=== PATIENT | male | born 1960 | race Caucasian/White ===

== ENCOUNTER → 2020-03-12 10:03 | Outpatient (BNVA) | payer OTHER, SELFPAY | PROVIDERS: PCP Internal Medicine; Visit Provider Urology | DX: Z76.89 Persons encountering health services in other specified circumstances (principal) ==

== ENCOUNTER → 2020-09-11 15:40 | Outpatient (BNVA) | payer OTHER, SELFPAY | PROVIDERS: Visit Provider Urology ==

== ENCOUNTER → 2022-10-19 08:25 | Outpatient (BNVA) | payer OTHER, SELFPAY | PROVIDERS: PCP Internal Medicine; Visit Provider Urology | DX: N40.1 Benign prostatic hyperplasia with lower urinary tract symptoms (principal); N13.8 Other obstructive and reflux uropathy; R97.20 Elevated prostate specific antigen [PSA]; Z79.899 Other long term (current) drug therapy | CPT/HCPCS: 51798 ==

== ENCOUNTER 2023-12-05 10:22 | Outpatient (AMB) | payer OTHER, SELFPAY ==
--- NOTE | 2023-12-05 10:31 | MHC.OFFVIS ---
Intake Visit Reasons: 1Y PVR(needs PSA) Intake Note: Patient is present for Follow Up PSA/PVR Urology Med: Dutasteride Antibiotic Allergy: None Blood Thinner: None PVR: 167 today's PVR: 0ML'S Patient Services Rep Required: No Allergies No Known Allergies Allergy (Verified 12/05/23 10:39) HPI Comments Details: Natanael is a pleasant male. He is a patient of Dr Don. He is seen for the following urologic conditions - lower urinary tract symptoms - elevated PSA Continues with low this dutasteride Continue low-dose and once yearly PSA Lower urinary tract symptoms with elevated PSA He presents for - further evaluation of elevated PSA Current management is - finasteride Laboratory investigations include - a total PSA evaluation - 01/25 4.5, 08/26 2.1, 10/27 1.7, 10/28 2.2 Individualized Prostate Cancer Risk Calculator - < 5% high risk - Discussion regarding TRUS biopsy performed, - Discussed use of 5AR to help differentiate prostate cancer from benign disease. He would like to try this and understands the small risk associated with a delay in diagnosis, Symptoms include - minimal Overall symptoms are mild Therapeutic plan will be - continued surveillance PFSH Family History Maternal Uncle No problems noted. Review of Systems Const Denies chills and Denies fever(s) Card Reports no additional complaints and Denies syncope Resp Denies cough GI Denies abdominal pain and Denies heartburn Reports as per HPI and Denies change in libido Neuro Denies syncope Psych Denies change in libido Endo Denies change in libido Physical Exam Const General: cooperative, healthy appearing, comfortable and no acute distress Orientation/consciousness: patient oriented x3 HEENT Face and sinus: Yes normal facial exam Mouth: moist mucous membranes Neck Neck: Yes normal visual inspection, Yes full ROM and Yes trachea midline Chest Chest palpation & inspection: normal inspection of the chest Resp Effort & Inspection: normal respiratory effort, able to speak in complete sentences and no respiratory distress GI Inspection: Yes normal to inspection Back/Spine/Pelvis Cervical Spine: normal cervical lordosis Thoracic/Lumbar Spine: thoracic and lumbar spine normal to inspection Skin General skin exam: no rashes or lesions noted Neuro General: patient oriented x3, gait normal, tone normal and moves all extremities Extrem General: Yes normal to inspection and Yes capillary refill normal Office Procedures Post Void Residual Post Residual Void Post Void Residual (PVR): 0 [id number]-[id number] Void Residual by ultrasound Results AMB Urinalysis, Automated UA Leukoctes 0 Aaliyah/uL Last Edit by NANI Garcia on 12/05/23 11:06 UA Nitrite Negative Last Edit by NANI Garcia on 12/05/23 11:06 UA Urobilinogen 0.2 mg/dL Last Edit by NANI Garcia on 12/05/23 11:06 UA Protein 0 mg/dL Last Edit by Domitila Murphy CCM on 12/05/23 11:06 UA pH 6.0 Last Edit by Domitila Murphy CCM on 12/05/23 11:06 UA Blood 0 Hugo/uL Last Edit by Domitila Murphy CCM on 12/05/23 11:06 UA Specific [place] 1.015 Last Edit by NANI Garcia on 12/05/23 11:06 UA Ketone Negative Last Edit by NANI Garcia on 12/05/23 11:06 UA Bilirubin 0 mg/dL Last Edit by Domitila Murphy CCM on 12/05/23 11:06 UA Glucose 0 mg/dL Last Edit by Domitila Murphy [facility] on 12/05/23 11:06 Results Reviewed Results Reviewed: Laboratory Last Values Urine pH (Auto) 6.0 12/05/23 11:03 Specific [place] (Auto) 1.015 12/05/23 11:03 Urine Protein (Auto) 0 mg/dL 12/05/23 11:03 Glucose (UA)(Auto) 0 mg/dL 12/05/23 11:03 Urine Ketones (Auto) Negative 12/05/23 11:03 Urine Blood (Auto) 0 Hugo/uL 12/05/23 11:03 Urine Nitrite (Auto) Negative 12/05/23 11:03 Urine Bilirubin (Auto) 0 mg/dL 12/05/23 11:03 Urine Urobilinogen (Auto) 0.2 mg/dL 12/05/23 11:03 Leukocyte Esterase (Auto) 0 Aaliyah/uL 12/05/23 11:03 Assessment & Plan Assessment & Plan (1) Elevated PSA: Code(s): R97.20 - Elevated prostate specific antigen [PSA] Category: Medical (2) Weak urinary stream: Code(s): R39.12 - Poor urinary stream Category: Medical (3) Erectile dysfunction: Code(s): N52.9 - Male erectile dysfunction, unspecified Category: Medical Plan 1 year follow-up PSA Continue dutasteride Add tadalafil Orders: Orders AMB Urinalysis Automated 12/05/23 Z13.9 - Encounter for screening, unspecified Prostate Specific Antigen 364 Days R97.20 - Elevated prostate specific antigen [PSA] Medications: New tadalafil On demand medication take 60 minutes before intended activity 20 mg PO ONCE 30 tabs 0RF sexual activity 30 days N52.9 - Male erectile dysfunction, unspecified Patient Instructions: Imaging studies, laboratory and physical exam results were discussed and reviewed in detail. No major barriers to patient understanding were identified. An opportunity to ask questions regarding the treatment plan was provided. All questions were answered. The patient expressed understanding and agreement with the above treatment plan. The patient is aware they should contact our office by phone for worsening of their current condition or the appearance of new urologic symptoms. Compliance is encouraged with any medications and followup testing that is ordered. It is a privilege to participate in the urologic care of your patient. If you have any questions or concerns regarding treatment for the above conditions, or other urologic issues, please do not hesitate to contact me. The office telephone contact is [phone]. This note is constructed using voice recognition software. While every effort has been made to ensure accuracy computer operator errors may have been included. Yours sincerely, Dr Eran Fraser MD, [facility] - Urology Providers of Expert, Compassionate Care for the Genitourinary System Coding Level of Care Code Est Pt Level 4 (68044) Diagnoses Elevated PSA R97.20 Weak urinary stream R39.12 Erectile dysfunction N52.9 CPT Codes Post Residual Void - PVR CPT Code: 24772-[id number] Void Residual by ultrasound ([id number])
== END 2023-12-05 11:52 | disposition home or self-care (01) ==
PROVIDERS: PCP Internal Medicine; Visit Provider Urology
DX: R97.20 Elevated prostate specific antigen [PSA] (principal); R39.12 Poor urinary stream; N52.9 Male erectile dysfunction, unspecified
CPT/HCPCS: 99214

== ENCOUNTER → 2023-12-05 10:22 | Outpatient (BNVA) | payer OTHER, SELFPAY | PROVIDERS: PCP Internal Medicine; Visit Provider Urology | DX: R97.20 Elevated prostate specific antigen [PSA] (principal); R39.12 Poor urinary stream; N52.9 Male erectile dysfunction, unspecified; Z79.899 Other long term (current) drug therapy | CPT/HCPCS: 51798; 81003 ==

== ENCOUNTER 2025-01-03 12:29 | Outpatient (REF) | payer OTHER, SELFPAY ==
--- OUTSIDE RECORDS SUMMARY | 2025-01-03 12:59 | XMS_ITS | Clinical Summary ---
Author Organization [facility] Address [address] [place] [address] Care Team Providers Care Pediatrician Active Practice Name Role Phone Unavailable Primary Care Provider Unavailabl e Social History Tobacco Use Types Packs/Day Years Used Date Smoking Tobacco: Never Assessed Sex and Gender Information Value Date Recorded Sex Assigned at Not on file Gender Identity Not on file Sexual Orientation Not on file Plan of Treatment Health Maintenance Due Date Last Done Comments Hepatitis C Screening 1960 COVID-19 Vaccine (#1) 1961 Depression Screening 1973 Preventative Health Evaluation 1979 DTap / Tdap / Td (1 - Tdap) 01/02/1980 Colon Cancer Screening (Colonoscopy) 2006 Shingrix-Zoster Vaccine (1 of 2) 2011 Influenza Vaccine (#1) 2025 RSV Adult > 60+ Yrs or Pregn ant (1 - 1-dose 75+ series) 01/02/2036 Hepatitis B Vaccines Aged Out No long er eligible based on patient's age to complete this topic Pneumococcal Vaccine Aged Out No long er eligible based on patient's age to complete this topic RSV Ped < 20 months Aged Out No longe r eligible based on patient's age to complete this topic
--- OUTSIDE RECORDS SUMMARY | 2025-01-03 12:59 | XMS_ITS ---
Author Name [facility] Organization Unknown Care Team Organization Name Specialty Phone Email Start Date End Mamadou Doherty [facility] 03/02/2023 12/26/2024
--- OUTSIDE RECORDS SUMMARY | 2025-01-03 12:59 | XMS_ITS | Clinical Summary ---
Author Organization [facility] Address [address] [place] [address] Care Team Providers Care Wildlife Conservationist Name Role Phone Unavailable Primary Care Provider Unavailabl e Social History Tobacco Use Types Packs/Day Years Used Date Smoking Tobacco: Never Assessed Sex and Gender Information Value Date Recorded Sex Assigned at Not on file Legal Sex Male 3:19 PM EDT Gender Identity Not on file Sexual Orientation Not on file Plan of Treatment Health Maintenance Due Date Last Done Comments Hepatitis C Virus Screening 1961 HIV Screening 1974 DTaP/Tdap/Td Vaccines (1 - Tdap) 01/02/1980 Pneumococcal Vaccines 50+ (1 of 1 - PCV) 2011 Zoster (Shingles) Vaccine (1 of 2) 2011 COVID-19 Vaccine ( - 2023-2 5 season) 2024 RSV Vaccine 60 years and old er and Patients (1 - 1-dose 75+ series) 01/02/2036 Hepatitis B Vaccines Aged Out No long er eligible based on patient's age to complete this topic
[2025-01-03 13:42] LABS: Prostate Specific Antigen 5.13 ng/mL (<0.05-4.0)
== END 2025-01-03 12:30 | disposition home or self-care (01) ==
LOC: HO.10HDL 12:29
PROVIDERS: Visit Provider Urology
DX: R97.20 Elevated prostate specific antigen [PSA] (principal); Z12.5 Encounter for screening for malignant neoplasm of prostate
CPT/HCPCS: 36415; 84153

== ENCOUNTER 2025-02-04 13:56 | Outpatient (AMB) | payer OTHER, SELFPAY ==
--- NOTE | 2025-02-04 13:56 | A.OFFVIS_ITS ---
Intake Visit Reasons: 1y/PSA Intake Note: Patient is present for 1 yr Follow Up Urology Med: Dutasteride, tadalafil Antibiotic Allergy: None Blood Thinner: None labs done : 01/03/25 PSA 5.13 Entrepreneur Required: No Accompanied by: Self / Same As Patient Allergies No Known Allergies Allergy (Verified 02/04/25 13:57) HPI Comments Details: Natanael is a pleasant male. He is a patient of Dr Don. He is seen for the following urologic conditions - lower urinary tract symptoms - elevated PSA Continues with low dose dutasteride 2 times per week PSA is elevated He would prefer review in six-month and repeat PSA Lower urinary tract symptoms with elevated PSA He presents for - further evaluation of elevated PSA Current management is - finasteride Laboratory investigations include - a total PSA evaluation - 01/25 4.5, 08/26 2.1, 10/27 1.7, 10/28 2.2, 12/30 5.1 Individualized Prostate Cancer Risk Calculator - < 5% high risk - Discussion regarding TRUS biopsy performed, - Discussed use of 5AR to help differentiate prostate cancer from benign disease. He would like to try this and understands the small risk associated with a delay in diagnosis, Symptoms include - minimal Overall symptoms are mild Therapeutic plan will be - continued surveillance PFSH Family History Maternal Uncle No problems noted. Review of Systems Const Denies chills and Denies fever(s) Card Reports no additional complaints and Denies syncope Resp Denies cough GI Denies abdominal pain and Denies heartburn Reports as per HPI and Denies change in libido Neuro Denies syncope Psych Denies change in libido Endo Denies change in libido Physical Exam Const General: cooperative, healthy appearing, comfortable and no acute distress Orientation/consciousness: patient oriented x3 HEENT Face and sinus: Yes normal facial exam Mouth: moist mucous membranes Neck Neck: Yes normal visual inspection, Yes full ROM and Yes trachea midline Chest Chest palpation & inspection: normal inspection of the chest Resp Effort & Inspection: normal respiratory effort, able to speak in complete sentences and no respiratory distress GI Inspection: Yes normal to inspection Back/Spine/Pelvis Cervical Spine: normal cervical lordosis Thoracic/Lumbar Spine: thoracic and lumbar spine normal to inspection Skin General skin exam: no rashes or lesions noted Neuro General: patient oriented x3, gait normal, tone normal and moves all extremities Extrem General: Yes normal to inspection and Yes capillary refill normal Assessment & Plan Assessment & Plan (1) Erectile dysfunction: Code(s): N52.9 - Male erectile dysfunction, unspecified Category: Medical (2) BPH w urinary obs/LUTS: Code(s): N40.1 - Benign prostatic hyperplasia with lower urinary tract symptoms; N13.8 - Other obstructive and reflux uropathy Category: Medical (3) Elevated PSA: Code(s): R97.20 - Elevated prostate specific antigen [PSA] Category: Medical Plan Six-month follow-up repeat PSA Orders: Orders PSA,Total (Free>4and<10) 6 Months R97.20 - Elevated prostate specific antigen [PSA] Medications: Refilled dutasteride 0.5 mg PO DAILY 90 caps 0RF 90 days R97.20 - Elevated prostate specific antigen [PSA] Patient Instructions: This note is constructed using voice recognition software. While every effort has been made to ensure accuracy water resource consultant errors may have been included. Imaging studies, laboratory and physical exam results were discussed and reviewed in detail. No major barriers to patient understanding were identified. An opportunity to ask questions regarding the treatment plan was provided. All questions were answered. The patient expressed understanding and agreement with the above treatment plan. The patient is aware they should contact our office by phone for worsening of their current condition or the appearance of new urologic symptoms. Compliance is encouraged with any medications and followup testing that is ordered. It is a privilege to participate in the urologic care of your patient. If you have any questions or concerns regarding treatment for the above conditions, or other urologic issues, please do not hesitate to contact me. The office telephone contact is [phone]. Sincerely, Dr Eran Fraser MD, [facility] - Urology Compassionate Specialist Care for the Genitourinary System Coding Level of Care Code Est Pt Level 3 (30041) Complex EM visit Add On G2211 Diagnoses Erectile dysfunction N52.9 BPH w urinary obs/LUTS N40.1; N13.8 Elevated PSA R97.20
--- OUTSIDE RECORDS SUMMARY | 2025-02-04 15:19 | XMS_ITS | Clinical Summary ---
Author Organization [facility] Address [address] [place] [address] Care Team Providers Care Lean Manufacturing Coordinator Name Role Phone Unavailable Primary Care Provider [...] of 2) 2011 Influenza Vaccine (#1) 2025 Pneumococcal Vaccine (1 of 1 - PCV) 2026 RSV Adult > 60+ Yrs or Pregn [...] on patient's age to complete this topic [address] [id number]
--- OUTSIDE RECORDS SUMMARY | 2025-02-04 15:19 | XMS_ITS | Clinical Summary ---
Author Organization [facility] Address [address] [place] [address] Care Team Providers Care Net Developer Consultant Name Role Phone Unavailable Primary Care Provider [...] COVID-19 Vaccine ( - 2023-2 5 season) 2025 RSV Vaccine 60 years and old er and Patients (1 - 1-dose 75+ series) 01/02/2036 Hepatitis B Vaccines Aged Out No long er eligible based on patient's age to complete this topic
== END 2025-02-04 14:52 | disposition home or self-care (01) ==
LOC: HO.HUSH 13:56
PROVIDERS: PCP Internal Medicine; Visit Provider Urology
DX: N52.9 Male erectile dysfunction, unspecified (principal); N40.1 Benign prostatic hyperplasia with lower urinary tract symptoms; N13.8 Other obstructive and reflux uropathy; R97.20 Elevated prostate specific antigen [PSA]
CPT/HCPCS: 99213